=== PATIENT | male | born 1990 | race Caucasian/White ===

== ENCOUNTER → 2020-03-26 | Outpatient (REF) | LOC: WSOH 08:09 | DX: H93.90 Unspecified disorder of ear, unspecified ear (principal) ==

== ENCOUNTER 2022-07-08 07:19 | Emergency (ER) | payer BC ==
[~2022-07-08] VITALS: Ht 188 cm; Wt 109.1 kg
[2022-07-08 07:43] LABS: BASO # 0.1 K/mm3 (0.0-0.2); BASO % 0.4 % (0.0-2.0); EOS % 0.1 % (0.0-4.0); GRAN # 13.2 K/mm3 (1.4-6.5); GRAN % 85.7 % (42.2-75.2); HEMATOCRIT 46.2 % (42.0-52.0); HEMOGLOBIN 17.2 g/dl (13.5-18.0); LYMPH # 1.1 K/mm3 (1.2-3.4); MEAN CELL VOLUME 83 fl (80.0-100.0); MEAN CORPUSCULAR HEMOGLOBIN 31 pg (27-31); MEAN CORPUSCULAR HGB CONC 37 g/dl (33.0-37.0); MONO % 6.3 % (1.7-9.3); PLATELET COUNT 181 K/mm3 (130-400); RED BLOOD COUNT 5.57 M/mm3 (4.20-5.60); REDCELL DISTRIBUTION WIDTH-CV 11.3 % (11.5-14.5)
[2022-07-08 08:08] LABS: ALBUMIN 4.5 gm/dL (3.5-5.0); BILIRUBIN,TOTAL 1.5 mg/dL (0.2-1.2); CALCIUM 9.8 mg/dL (8.4-10.2); CREATININE, serum 1.69 mg/dL (0.72-1.25); POTASSIUM 3.8 mmol/L (3.5-4.5); TOTAL PROTEIN 7.5 gm/dL (6.2-8.1)
[2022-07-08 08:43] VITALS: TEMP 102.1
[2022-07-08] MEDS ORDERED: ZOFRAN ODT4 MG PO ×2 (09:06→10:40)
[2022-07-08 11:07] VITALS: BP 120/56; PULSE 91
== END 2022-07-08 11:07 | disposition home or self-care (01) ==
LOC: COL.ER 07:19
PROVIDERS: Personal Emergency Response Attendant
DX: R11.2 Nausea with vomiting, unspecified (principal); E86.0 Dehydration; Z28.310 Unvaccinated for COVID-19; Z20.822 Contact with and (suspected) exposure to COVID-19
CPT/HCPCS: J2270; J2405; J7030